=== PATIENT | female | born 1965 | race Caucasian/White ===

== ENCOUNTER → 2018-03-20 07:03 | Outpatient (CLI) | payer BC, SELFPAY ==
[2018-03-20 09:53] LABS: Hemoglobin A1C 9.3 % (0.0-7.0)
[2018-03-20 09:56] LABS: Alanine Aminotransferase 35 U/L (12-78); Albumin Level 3.6 gm/dL (3.4-5.0); Alkaline Phosphatase 90 U/L (46-116); Anion Gap 11.2 mEq/L (5-15); Aspartate Amino Transferase 9 U/L (15-37); Bilirubin,Total 0.6 mg/dL (0.2-1.0); Blood Urea Nitrogen 11 mg/dL (7-18); Calcium 8.7 mg/dL (8.5-10.1); Carbon Dioxide 30 mmol/L (21.0-32.0); Chloride 101 mmol/L (98-107); Chol/HDL Ratio 3.8 (1-3.5); Cholesterol 179 mg/dL (140-200); Estimated Glomerular Filt Rate 87 ml/min (>60); GFR (African American) 106 ML/MIN (>60); Globulin 3.6 gm/dl (1.3-3.2); Glucose 228 mg/dL (74-106); HDL Cholesterol 47 mg/dL (29-89); LDL Cholesterol 114 mg/dL (0-130); Potassium 4.2 mmoL/L (3.5-5.1); Sodium 138 mmol/L (136-145); Total Protein,Serum 7.2 gm/dL (6.4-8.2); Triglycerides 89 mg/dL (30-200); VLDL Cholesterol 18 mg/dL (0-40)
== END ==
PROVIDERS: Visit Provider Internal Medicine Adolescent Medicine
DX: E11.9 Type 2 diabetes mellitus without complications (principal)
CPT/HCPCS: 36415; 80053; 80061; 83036

== ENCOUNTER → 2018-05-16 07:03 | Outpatient (CLI) | payer BC, SELFPAY ==
[2018-05-16 07:58] LABS: Hemoglobin A1C 8.3 % (0.0-7.0)
[2018-05-16 08:11] LABS: Alanine Aminotransferase 29 U/L (12-78); Albumin Level 3.9 gm/dL (3.4-5.0); Albumin/Globulin Ratio 1.1 (1.1-1.8); Alkaline Phosphatase 88 U/L (46-116); Anion Gap 14.2 mEq/L (5-15); Aspartate Amino Transferase 7 U/L (15-37); Bilirubin,Total 0.7 mg/dL (0.2-1.0); Blood Urea Nitrogen 21 mg/dL (7-18); Calcium 9.1 mg/dL (8.5-10.1); Carbon Dioxide 26 mmol/L (21.0-32.0); Chloride 102 mmol/L (98-107); Chol/HDL Ratio 4.1 (1-3.5); Cholesterol 136 mg/dL (140-200); Creatinine,Serum 0.72 mg/dL (0.55-1.02); Estimated Glomerular Filt Rate 84 ml/min (>60); GFR (African American) 102 ML/MIN (>60); Globulin 3.5 gm/dl (1.3-3.2); Glucose 207 mg/dL (74-106); HDL Cholesterol 33 mg/dL (29-89); LDL Cholesterol 78 mg/dL (0-130); Potassium 4.2 mmoL/L (3.5-5.1); Sodium 138 mmol/L (136-145); Total Protein,Serum 7.4 gm/dL (6.4-8.2); Triglycerides 126 mg/dL (30-200); VLDL Cholesterol 25 mg/dL (0-40)
== END ==
PROVIDERS: Visit Provider Internal Medicine Adolescent Medicine
DX: E11.9 Type 2 diabetes mellitus without complications (principal)
CPT/HCPCS: 36415; 80053; 80061; 83036

== ENCOUNTER → 2018-06-28 15:53 | Outpatient (CLI) | payer BC, SELFPAY ==
--- NOTE | 2018-06-28 16:00 | MM_ITS ---
MM Dig screening mamm BI w/CAD CAD Screening COMPARISON: Digital mammograms with CAD 01/31/2017 and 11/06/2015 INDICATION: There is a history of breast cancer patient's mother and maternal grandmother both diagnosed after menopause. TECHNIQUE: Standard CC and MLO images were obtained. R2 CAD reviewed. FINDINGS: Moderate scattered fibroglandular densities are seen in both breasts. There is a questionable area of architectural distortion upper outer quadrant right breast. Recommend patient return for spot compression views in MLO and CC views. Ultrasound may be necessary as well. There is minimal arterial calcination right breast and there are few benign-appearing calcifications right breast. There are no suspicious microcalcifications. There is a stable tiny nodular density inner quadrant left breast. IMPRESSION: Fibrofatty parenchyma with possible developing area of architectural distortion right breast versus summation shadow BI-RADS Category: 0 Need Additional Imaging Evaluation RECOMMENDED FOLLOW-UP: IMM - IMMEDIATE FOLLOW-UP RECOMMENDED (A letter has been sent to the patient regarding results of the study.)
== END ==
PROVIDERS: PCP Internal Medicine Adolescent Medicine; Visit Provider Internal Medicine Adolescent Medicine
DX: Z12.31 Encounter for screening mammogram for malignant neoplasm of breast (principal)
CPT/HCPCS: 77067

== ENCOUNTER → 2018-07-27 12:41 | Outpatient (CLI) | payer BC, SELFPAY ==
--- NOTE | 2018-07-27 12:49 | MM_ITS ---
MM Dig mamm DX unilat RT CAD, US breast RT complete Ordering Physician: Vik Kovacs MD Patient Age: 53 years Female COMPARISON: January, June 2018 bilateral screening mammogram. Studies . INDICATION: More pronounced Asymmetric density superior left breast for further evaluation DIAGNOSTIC RIGHT MAMMOGRAM with Spot views . And large and small Spot CC, MLO as well as a 90 degree view performed The 90 degrees spot view today is particularly helpful in this patient. The area of density dissipates significantly on that view supporting reviewing an area of summation shadow and fibroglandular elements. The cc view is a remaining stable since multiple previous studies No findings here on subsequent ultrasound either. There is Follow-up right mammogram 6 months-8 months recommended to fully exclude any new features here ========= ULTRASOUND RIGHT BREAST. Included axilla survey No suspicious findings. No architectural distortion. \No solid nodule There is a tiny cyst at 10:00 measures only 5 mm mm length x 2.2 mm.. Have scattered benign axillary lymph nodes. A few benign appearing lymph nodes at the right axilla are noted. Not of concern. IMPRESSION: 1. Additional mammogram spot views significant decreased concern, of the area at at upper quadrant right breast. The area of density dissipates significantly on today's 90 degrees spot view-& appears stable on cc views as well as well . Thus I believe this was merely due to overlapping from fibroglandular elements . Follow-up mammogram only in 6-8 months adequate (cc MLO & 90 degree view) 2. Ultrasound right breast shows no areas of concern . Tiny cyst at 10:00 BI-RADS Category: 3 Probably Benign Finding Short Term Follow-up RECOMMENDED FOLLOW-UP: 6M 6 MONTH FOLLOW-UP A letter has been sent to the patient regarding results of the study.)
== END ==
PROVIDERS: PCP Internal Medicine Adolescent Medicine; Visit Provider Internal Medicine Adolescent Medicine
DX: R92.8 Other abnormal and inconclusive findings on diagnostic imaging of breast (principal)
CPT/HCPCS: 76641; 77065

== ENCOUNTER → 2018-10-15 11:41 | Outpatient (CLI) | payer BC, SELFPAY ==
[2018-10-15 12:17] LABS: Hemoglobin A1C 8.9 % (0.0-7.0)
[2018-10-15 14:46] LABS: Alanine Aminotransferase 24 U/L (12-78); Albumin Level 3.6 gm/dL (3.4-5.0); Albumin/Globulin Ratio 1.1 (1.1-1.8); Alkaline Phosphatase 104 U/L (46-116); Anion Gap 13.4 mEq/L (5-15); Aspartate Amino Transferase 14 U/L (15-37); Bilirubin,Total 0.8 mg/dL (0.2-1.0); Blood Urea Nitrogen 15 mg/dL (7-18); Calcium 8.7 mg/dL (8.5-10.1); Carbon Dioxide 28 mmol/L (21.0-32.0); Chloride 104 mmol/L (98-107); Chol/HDL Ratio 3.3 (1-3.5); Cholesterol 127 mg/dL (140-200); Creatinine,Serum 0.72 mg/dL (0.55-1.02); Estimated Glomerular Filt Rate 84 ml/min (>60); GFR (African American) 102 ML/MIN (>60); Globulin 3.4 gm/dl (1.3-3.2); Glucose 164 mg/dL (74-106); HDL Cholesterol 38 mg/dL (29-89); LDL Cholesterol 73 mg/dL (0-130); Potassium 4.4 mmoL/L (3.5-5.1); Sodium 141 mmol/L (136-145); Triglycerides 80 mg/dL (30-200); VLDL Cholesterol 16 mg/dL (0-40)
== END ==
PROVIDERS: PCP Internal Medicine Adolescent Medicine; Visit Provider Internal Medicine Adolescent Medicine
DX: E11.9 Type 2 diabetes mellitus without complications (principal); Z79.84 Long term (current) use of oral hypoglycemic drugs
CPT/HCPCS: 36415; 80053; 80061; 83036

== ENCOUNTER → 2019-02-12 07:01 | Outpatient (CLI) | payer BC, SELFPAY ==
[2019-02-12 08:43] LABS: Alanine Aminotransferase 19 U/L (12-78); Albumin Level 3.5 gm/dL (3.4-5.0); Albumin/Globulin Ratio 1.1 (1.1-1.8); Alkaline Phosphatase 95 U/L (46-116); Anion Gap 13.4 mEq/L (5-15); Aspartate Amino Transferase 11 U/L (15-37); Bilirubin,Total 0.6 mg/dL (0.2-1.0); Blood Urea Nitrogen 1 mg/dL (7-18); Calcium 8.9 mg/dL (8.5-10.1); Carbon Dioxide 27 mmol/L (21.0-32.0); Chloride 102 mmol/L (98-107); Chol/HDL Ratio 4.6 (1-3.5); Cholesterol 211 mg/dL (140-200); Creatinine,Serum 0.67 mg/dL (0.55-1.02); Estimated Glomerular Filt Rate 91 ml/min (>60); GFR (African American) 111 ML/MIN (>60); Globulin 3.3 gm/dl (1.3-3.2); Glucose 285 mg/dL (74-106); HDL Cholesterol 46 mg/dL (29-89); LDL Cholesterol 138 mg/dL (0-130); Potassium 4.4 mmoL/L (3.5-5.1); Sodium 138 mmol/L (136-145); Total Protein,Serum 6.8 gm/dL (6.4-8.2); Triglycerides 136 mg/dL (30-200); VLDL Cholesterol 27 mg/dL (0-40)
[2019-02-12 10:49] LABS: Hemoglobin A1C 10.2 % (0.0-7.0)
== END ==
PROVIDERS: Visit Provider Internal Medicine Adolescent Medicine
DX: E11.9 Type 2 diabetes mellitus without complications (principal); Z79.84 Long term (current) use of oral hypoglycemic drugs
CPT/HCPCS: 36415; 80053; 80061; 83036

== ENCOUNTER → 2019-05-18 13:53 | Outpatient (CLI) | payer BC, SELFPAY ==
[2019-05-18 18:06] LABS: Albumin Level 3.9 gm/dL (3.4-5.0); Albumin/Globulin Ratio 1.3 (1.1-1.8); Bilirubin,Total 0.6 mg/dL (0.2-1.0); Cholesterol 143 mg/dL (140-200); Globulin 3.1 gm/dl (1.3-3.2); Triglycerides 63 mg/dL (30-200); VLDL Cholesterol 13 mg/dL (0-40)
[2019-05-18 18:21] LABS: Alanine Aminotransferase 26 U/L (12-78); Alkaline Phosphatase 83 U/L (46-116); Anion Gap 6.9 mEq/L (5-15); Aspartate Amino Transferase 18 U/L (15-37); Blood Urea Nitrogen 14 mg/dL (7-18); Calcium 8.8 mg/dL (8.5-10.1); Carbon Dioxide 28 mmol/L (21.0-32.0); Chloride 104 mmol/L (98-107); Chol/HDL Ratio 3.3 (1-3.5); Creatinine,Serum 0.79 mg/dL (0.55-1.02); Estimated Glomerular Filt Rate 76 ml/min (>60); GFR (African American) 91 ML/MIN (>60); Glucose 104 mg/dL (74-106); HDL Cholesterol 43 mg/dL (29-89); LDL Cholesterol 87 mg/dL (0-130); Potassium 3.9 mmoL/L (3.5-5.1); Sodium 135 mmol/L (136-145)
== END ==
PROVIDERS: Visit Provider Internal Medicine Adolescent Medicine
DX: E11.9 Type 2 diabetes mellitus without complications (principal); Z79.84 Long term (current) use of oral hypoglycemic drugs
CPT/HCPCS: 36415; 80053; 80061; 83036

== ENCOUNTER 2022-10-13 17:25 | Emergency (ER) | payer BC, SELFPAY ==
[2022-10-13 17:35] VITALS: BP 133/82; PULSE 101; RESP 20; TEMP 36.9; O2SAT 95; BMI 28.8
--- NOTE | 2022-10-13 17:41 | EXP.UTC ---
Discharge Plan Disposition Patient Disposition: Home, Self-Care Condition: Good Prescriptions Prescriptions: No Action atorvastatin 20 MG tablet 40 mg PO HS carvedilol 12.5 MG tablet 6.25 mg PO DAILY aspirin 81 MG tablet,delayed release (DR/EC) 81 mg PO DAILY losartan 25 MG tablet 100 mg PO DAILY dapagliflozin-metformin 1 EACH tablet, IR - ER, biphasic 24hr 1 each PO DAILY Referrals Follow up/Referrals: Vik Kovacs MD [Primary Care Provider] - See instructions Activity Restrictions/Add. Instructions Additional Instructions/Restrictions: Drink plenty of fluids. Take tylenol for pain or fever. Return if you begin to have difficulty breathing. Follow up with your regular doctor. GO TO THE ER FOR ANY WORSENING SYMPTOMS Clinical Impressions Clinical Impression: Exposure to 2019 novel coronavirus, Viral syndrome Instructions Patient Instructions: Coronavirus Disease 2019, Preventing the Spread of Coronavirus Discharge Instructions Discharge ED Provider: Munir Garcia [facility] General Stated complaint: covid test,exposure Time Seen by Provider: 10/13/22 17:41 History of Present Illness Provider Complaint: She was exposed to covid-19 around 5 days ago. For the past 2 days she has felt like she is getting a sinus infection. she denies any shortness of breath and congestion. Related Data Home Medications Medication Instructions Recorded Confirmed aspirin 81 mg tablet,delayed 81 mg PO DAILY thinner 10/19/18 10/19/18 release atorvastatin 20 mg tablet 40 mg PO HS Cholesterol 10/19/18 10/22/18 carvedilol 12.5 mg tablet 6.25 mg PO DAILY bp 10/19/18 10/22/18 dapagliflozin 10 mg-metformin ER 1 each PO DAILY Diabetes 10/19/18 10/19/18 1,000 mg tablet,extended release 24hr losartan 25 mg tablet 100 mg PO DAILY blood pressure 10/19/18 10/22/18 Allergies Allergy/AdvReac Type Severity Reaction Status Date / Time No Known Allergies Allergy Verified 10/19/18 13:24 [facility] Disclaimer: The information contained in this section may have been updated after the patient was seen, as this information can be updated by other users. Social History Smoking Status: Never smoker alcohol intake: former substance use type: other current occupational status: other Travel in the last 8 weeks: None caffeine: No ROS Obtained: Yes All systems reviewed & no additional complaints except as documented Constitutional Constitutional: Denies chills and Denies fever(s) Eyes Eyes: Denies eye discharge ENT Ears, Nose, Mouth, and Throat: Denies dizziness, Denies otalgia and Denies sore throat Cardiovascular Cardiovascular: Denies chest pain Respiratory Respiratory: Denies shortness of breath, Denies chest congestion, Denies cough, Denies stridor and Denies wheezing Gastrointestinal Gastrointestingal: Denies nausea or vomiting Musculoskeletal Musculoskeletal: Reports system reviewed and no additional complaints, except as documented and Denies arthralgias Integumentary/Breasts Skin/Breast: Denies rash Neurologic Neurologic: Denies dizziness and Denies paresthesias Allergic/Immunologic Allergic/Immunologic: Denies wheezing Physical Exam General General appearance: alert and in no apparent distress Head Head exam: atraumatic, normocephalic and normal inspection Eye Eye exam: Present normal appearance, PERRL and EOMI ENT ENT exam: Present normal exam, normal oropharynx, mucous membranes moist, TM's normal bilaterally and normal external ear exam Neck Neck exam: Present normal inspection, full ROM and trachea midline; Absent meningismus or lymphadenopathy Chest Chest inspection: Present normal inspection and symmetric chest wall rise; Absent tenderness Respiratory Respiratory exam: Present normal lung sounds bilaterally; Absent respiratory distress Cardiovascular Cardiovascular exam: Present regular rate a
[2022-10-13 17:44] VITALS: BP 133/82; PULSE 101; RESP 20; TEMP 36.9; O2SAT 95
== END 2022-10-13 17:48 | disposition home or self-care (01) ==
PROVIDERS: Emergency Provider Nurse Practitioner Family; PCP Internal Medicine Adolescent Medicine
DX: U07.1 COVID-19 (principal)
CPT/HCPCS: 87635; 99203; 99212; C9803; G0463; U0003; U0005

== ENCOUNTER 2023-07-04 15:52 | Outpatient (CLI) | payer BC, SELFPAY ==
--- NOTE | 2023-07-04 15:57 | MM_ITS ---
PROCEDURE INFORMATION: Exam: MG Bilateral Screening 3D Mammography Exam date and time: 07/04/2023 3:44 PM Age: 57 years old Clinical indication: Screening examination TECHNIQUE: Imaging protocol: Bilateral Screening tomosynthesis and 2D mammography including computer-aided detection (CAD) when performed. COMPARISON: 1. MG DXRT MM Dig mamm DX unilat RT CAD 07/27/2018 1:12 PM 2. MG SCBI MM Dig screening mamm BI w/CAD 06/28/2018 4:05 PM FINDINGS: MAMMOGRAPHY: Breast composition: There are scattered areas of fibroglandular density. Mass: Questionable 0.8 cm mass in the middle third of the right upper outer quadrant better seen in the craniocaudal projection Architectural distortion: None. Calcifications: No suspicious calcifications. Asymmetric density: None. Skin thickening: None. Axillary adenopathy: None. IMPRESSION: Patient to be recalled for spot compression views of the right breast in the CC and MLO projections, a full 90 degree lateral view, and right breast ultrasound for further evaluation of a right breast mass. ASSESSMENT: BI-RADS Category 0: Incomplete- Need Additional Imaging Evaluation and/or Prior Mammograms for Comparison.
== END 2023-07-04 23:59 ==
LOC: RAD 15:53
PROVIDERS: PCP Nurse Practitioner Family; Visit Provider Nurse Practitioner Family
DX: Z12.31 Encounter for screening mammogram for malignant neoplasm of breast (principal)
CPT/HCPCS: 77063; 77067

== ENCOUNTER 2023-07-20 13:45 | Outpatient (CLI) | payer BC, SELFPAY ==
--- NOTE | 2023-07-20 14:00 | US_ITS ---
PROCEDURE INFORMATION: Exam: US Right Breast, Complete MG Right Diagnostic Breast Tomosynthesis Exam date and time: 07/20/2023 2:38 PM Age: 58 years old Clinical indication: Patient recalled on the basis of a screening mammogram for further evaluation; Right breast; questionable mass TECHNIQUE: Imaging protocol: Complete ultrasound of all four quadrants of the right breast and the retroareolar regions, including ultrasound of the axilla when performed. Right Diagnostic tomosynthesis and 2D mammography including computer-aided detection (CAD) when performed. Unilateral or bilateral exam. COMPARISON: BREASTRT US breast RT complete 07/27/2018 1:37 PM Mammogram dated 07/04/2023 FINDINGS: MAMMOGRAPHY: Breast composition: There are scattered areas of fibroglandular density (based on the most recent screening mammogram report). Breast mammogram findings: Digital diagnostic spot compression views of the right breast and 90 degree lateral view of the right breast demonstrate normal overlapping fibroglandular structures without persistent mass or asymmetry identified. ULTRASOUND: Breast ultrasound findings: Sonographic images of the right breast including the retroareolar region, all 4 quadrants and the axilla do not demonstrate cystic masses. Minimal subcentimeter cystic change is noted in the right lateral breast. No architectural distortion or acoustical shadowing. No skin thickening or axillary adenopathy. IMPRESSION: No mammographic or sonographic evidence of malignancy. Annual bilateral mammographic screening is recommended unless otherwise clinically indicated. ASSESSMENT: BI-RADS Category 2: Benign.
== END 2023-07-20 23:59 ==
LOC: RAD 13:45
PROVIDERS: PCP Nurse Practitioner Family; Visit Provider Nurse Practitioner Family
DX: R92.8 Other abnormal and inconclusive findings on diagnostic imaging of breast (principal)
CPT/HCPCS: 76641; 77061; 77065; G0279